=== PATIENT | male | born 1960 | race Caucasian/White ===

== ENCOUNTER 2017-01-19 20:15 | Inpatient (IN) | payer OTHER ==
[~2017-01-19] VITALS: Ht 170.2 cm; Wt 82.7 kg
[~2017-01-19 20:15] MED LIST: CARVEDILOL3.125 M1 PO; CLONAZEPAM2 MG PO; COUMADIN4 MG PO; GLU500; LAC PO; LASIX20 MG PO; LIPI20 PO; NOR5 PO; ZITHROMAX Z-PA250 M2 PO
[2017-01-19 21:36] LABS: BASOPHIL % 0.4 % (0-2); PLATELET COUNT 275 x10^3mcL (130-400)
[2017-01-19 21:44] LABS: CALCIUM 9.2 mg/dL (8.5-10.1); CARBON DIOXIDE 26.5 mmol/L (21-32); CHLORIDE SERUM 98 mmol/L (98-107); CREATININE SERUM 1.2 mg/dL (0.7-1.3); GFR1 > 60 mL/min; GLUCOSE SERUM 162 mg/dL (74-106); POTASSIUM SERUM 3.2 mmol/L (3.5-5.1); SODIUM SERUM 136 mmol/L (136-145)
[2017-01-19 21:49] LABS: ALBUMIN 4.1 g/dL (3.4-5.0); ALKALINE PHOSPHATASE 79 U/L (46-116); ALT/SGPT 34 U/L (16-63); AST/SGOT 34 U/L (15-37); BILIRUBIN TOTAL 3.8 mg/dL (0.20-1.00); TOTAL PROTEIN, SERUM 8.1 g/dL (6.4-8.2)
[2017-01-19] MEDS ORDERED: DIG125 PO (21:57)
[2017-01-19] MEDS ORDERED: LASIX40 MG PO (21:57)
[2017-01-19] MEDS ORDERED: ALBUTEROL SULFAT3 ML IH (21:59)
[2017-01-19] MEDS ORDERED: PROTONIX20 MG PO (21:59)
[2017-01-19] MEDS ORDERED: METFORMIN HCL850 MG PO (22:00)
[2017-01-19 22:03] LABS: RED CELL DISTRIBUTION WIDTH 21.7 % (11.5-14.5)
[2017-01-19 22:07] LABS: rbc morphology (normal/abnorm) ABNORMAL (NORMAL)
[2017-01-19 23:07] VITALS: BP 138/60
[2017-01-19 23:28] LABS: MAGNESIUM 1.3 mg/dL (1.8-2.4); PHOSPHOROUS 3.6 mg/dL (2.5-4.9)
[2017-01-19 23:30] LABS: CHOLESTEROL/HDL RATIO 6.2
[2017-01-19 23:46] LABS: FREE T4 1.57 ng/dL (0.76-1.46); FREE THYROXINE INDEX 4.6 ug/dL (1.4-4.5); T4(THYROXINE) 12.1 ug/dL (4.7-13.3)
[2017-01-20] VITALS (7 sets, daily range): BP systolic 90–134; BP diastolic 37–47
[2017-01-20 00:12] LABS: T3 TOTAL 0.96 ng/mL
[2017-01-20 03:23] LABS: UA SPECIFIC GRAVITY 1.025 (1.005-1.035); microscopic required? YES; urine erythrocyte 1+ (NEGATIVE)
[2017-01-20 03:38] LABS: AMPHETAMINE QUAL UR NONE DETECTED (NEG <=1000)
[2017-01-20 06:23] LABS: CALCIUM 8.7 mg/dL (8.5-10.1); CARBON DIOXIDE 28.3 mmol/L (21-32); CREATININE SERUM 1.5 mg/dL (0.7-1.3); MAGNESIUM 1.9 mg/dL (1.8-2.4); POTASSIUM SERUM 3.7 mmol/L (3.5-5.1)
[2017-01-20 06:29] LABS: BASOPHIL % 0.4 % (0-2); PLATELET COUNT 215 x10^3mcL (130-400)
[2017-01-20 06:36] LABS: RED CELL DISTRIBUTION WIDTH 21.7 % (11.5-14.5)
[2017-01-21 04:56] VITALS: BP 126/50
[2017-01-21 06:09] LABS: BASOPHIL % 0.5 % (0-2); PLATELET COUNT 217 x10^3mcL (130-400)
[2017-01-21 06:19] LABS: CALCIUM 8.4 mg/dL (8.5-10.1); CREATININE SERUM 1.8 mg/dL (0.7-1.3); POTASSIUM SERUM 3.7 mmol/L (3.5-5.1)
[2017-01-21 06:32] LABS: RED CELL DISTRIBUTION WIDTH 21.7 % (11.5-14.5)
[2017-01-21 10:04] VITALS: BP 109/53
[2017-01-21 13:03] VITALS: BP 116/51
[2017-01-21 15:34] VITALS: BP 116/51
[2017-01-21 15:38] VITALS: BP 116/51
== END 2017-01-21 16:32 | disposition home or self-care (01) | DRG 194 ==
LOC: ED 20:15 → DU 22:26
PROVIDERS: Emergency Medicine; ADMIT Family Medicine
DX: I11.0 Hypertensive heart disease with heart failure (principal); N17.0 Acute kidney failure with tubular necrosis; J18.9 Pneumonia, unspecified organism; E11.65 Type 2 diabetes mellitus with hyperglycemia; E83.42 Hypomagnesemia; I50.43 Acute on chronic combined systolic (congestive) and diastolic (congestive) heart failure; J44.9 Chronic obstructive pulmonary disease, unspecified; E87.6 Hypokalemia; E78.2 Mixed hyperlipidemia; E80.6 Other disorders of bilirubin metabolism; I42.9 Cardiomyopathy, unspecified; K21.9 Gastro-esophageal reflux disease without esophagitis; F17.200 Nicotine dependence, unspecified, uncomplicated
CPT/HCPCS: 82962; 83880; 84439; 94150; J1940; J1956; J2405; J3430; J3475; J3490; J7030; J7620; Q0092